=== PATIENT | male | born 1980 | race Caucasian/White ===

== ENCOUNTER → 2019-06-02 | Outpatient (CLI) | payer OTHER ==
[2019-06-02 14:01] LABS: Basophils # (A) 0.2 k/uL (0-0.2); Basophils % (A) 2 %; Eosinophils # (A) 0.5 k/uL (0-0.7); Eosinophils % (A) 5 %; HCT 56.2 % (39.0-53.0); HGB 18.6 gm/dL (13.0-17.5); Lymphocytes # (A) 3.2 k/uL (1.0-4.8); Lymphocytes % (A) 29 %; MCH 30.6 pg (25.0-35.0); MCV 92.6 fL (80.0-100.0); Mean Platelet Volume 6.4; Monocytes # (A) 0.6 k/uL (0-1.0); Monocytes % (A) 6 %; Neutrophils % (A) 56 %; Platelet Count 411 k/uL (150-450); RBC 6.07 m/uL (4.30-5.90); RDW 12.9 % (11.5-15.5); WBC 10.8 k/uL (3.8-10.6)
[2019-06-02 21:32] LABS: African American GFR (CKD) 111.7 (60.0-200.0); Albumin 4.5 g/dL (3.80-4.90); Albumin/Globulin Ratio 2.25 (1.60-3.17); Anion Gap 8.3 mmol/L (4.00-12.00); Calcium 9.4 mg/dL (8.7-10.3); Carbon Dioxide 25.7 mmol/L (21.6-31.8); Chol/HDL Ratio 5.05; LDL Cholesterol,Calculated 134.8 mg/dL (0.0-131.0); Total Bilirubin 0.4 mg/dL (0.2-1.2); Total Protein 6.5 g/dL (6.2-8.2); VLDL Calculation 35.2 mg/dL (5.00-40.00)
== END | disposition home or self-care (01) ==
LOC: LABWHC1 13:16
PROVIDERS: ATTEND Family Medicine
DX: Z00.00 Encounter for general adult medical examination without abnormal findings (principal)
CPT/HCPCS: 36415; 80053; 80061; 84443; 85025

== ENCOUNTER 2019-10-27 10:51 | Emergency (ER) | payer OTHER ==
[2019-10-27 11:15] VITALS: RESP 18
[2019-10-27 12:04] LABS: Appearance,Urine Cloudy (Clear); Bacteria,Urine Rare /hpf; Bilirubin,Urine Negative (Negative); Blood,Urine Small (Negative); Color,Urine Yellow; Glucose,Urine (UA) Negative (Negative); Ketones,Urine Negative (Negative); Leukocyte Esterase,Urine Large (Negative); Mucus,Urine Rare /hpf; Nitrite,Urine Negative (Negative); PH, Urine 5.5 (5.0-8.0); Protein,Urine Trace (Negative); RBC,Urine 18 /hpf (0-5); Specific Gravity,Urine 1.027 (1.001-1.035); Urobilinogen,Urine <2.0 mg/dL (<2.0); WBC,Urine 146 /hpf (0-5)
[2019-10-27] MEDS ORDERED: KETOROLAC 30 MG/ML 1 ML VIAL IM STA (12:28)
[2019-10-27] MEDS ORDERED: MORPHINE SULFATE 4 MG/ML SYRINGE IM STA (12:47)
[2019-10-27] MEDS ORDERED: cefTRIAXone IN SWFI 1,000 MG/10 ML SYRINGE IVP STA (13:13)
[2019-10-27] MEDS ORDERED: cefTRIAXone 1,000 MG VIAL (IM USE) IM STA (13:29)
[2019-10-27] MEDS ORDERED: LIDOCAINE 1% INJ 10MG/ML (20 ML MDV) SQ ONE (13:32)
--- NOTE | 2019-10-27 13:46 | US ---
EXAMINATION TYPE: US scrotum with doppler. TECHNIQUE: Grayscale and color Doppler Duplex imaging performed of the scrotum. DATE OF EXAM: 10/27/2019 COMPARISON: NONE CLINICAL HISTORY: 38-year-old male scrotal injury last week, patient has increased pain since then Findings: EXAM MEASUREMENTS: TESTICLES: Right Testicle: 4.6 x 2.2 x 2.7 cm Left Testicle: 3.6 x 2.4 x 3.0 cm Occasional bilateral testicular microlithiasis. EPIDIDYMIS HEAD: Right Epididymis: 1.1 cm Left Epididymis: 0.9 cm. However, there is enlargement and heterogeneity to the tail of the epididym is measuring up to 2.3 x 1.9 cm. Associated hyperemia. Doppler performed to assess for testicular vascularity; good bilateral color flow and waveforms are s een. There is no evidence of testicular torsion. 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 IMPRESSION: 1. No sonographic evidence for testicular torsion. 2. Heterogeneity, enlargement, and hyperemia of the left epididymis suggestive of epididymitis. 3. Small left hydrocele, likely reactive.
[2019-10-27] MEDS ORDERED: MORPHINE SULFATE 4 MG/ML SYRINGE IVP STA (14:44)
--- NOTE | 2019-10-27 14:44 | ED ---
Male Urogenital HPI - General Chief complaint: Urogenital Stated complaint: enlarged testicle Source: patient Mode of arrival: ambulatory Limitations: no limitations - History of Present Illness Initial comments: The patient is a 38-year-old male with history of chronic back pain who presents to the emergency department with reported left testicular pain. Patient reports that his pain has been going on for the past 5 days. Has been worsening for the past 3 days. He denies any inciting trauma.. He has been taking Tylenol at home for his symptoms. Denies dysuria, hematuria did leave voiding. Denies diarrhea, constipation, melenic stools or hematochezia Reports that it has become enlarged and warm to the touch. Reports that he was tested 3 weeks ago for sexually transmitted infections and they were negative. Denies any fevers or chills. Does admit to unprotected intercourse. 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 modifying factors - Related Data Home Medications Medication Instructions Recorded Confirmed HYDROcodone/APAP 10-325MG [[place] 1 tab PO Q6H PRN 12/19/15 12/19/15 10-325] buPROPion HCL [Zyban] 150 mg PO DAILY PRN 12/19/15 12/19/15 Previous Rx's Medication Instructions Recorded Cyclobenzaprine [Flexeril] 10 mg PO TID PRN #15 tab 12/19/15 methylPREDNISolone [Medrol Dose 4 mg PO DIRECTED #1 pack 12/19/15 Pack] Doxycycline Monohydrate [Monodox] 100 mg PO Q12HR #20 cap 10/27/19 Hydrocodone/Acetaminophen [[place] 1 tab PO Q6HR PRN #12 tab 10/27/19 5-325] Allergies Allergy/AdvReac Type Severity Reaction Status Date / Time No Known Allergies Allergy Verified 10/27/19 11:15 Review of Systems ROS Statement: Those systems with pertinent positive or pertinent negative responses have been documented in the HPI. ROS Other: All systems not noted in ROS Statement are negative. Past Medical History Additional Past Medical History / Comment(s): Genetic Fusion of the thoracic spine History of Any Multi-Drug Resistant Organisms: None Reported Past Surgical History: Appendectomy, Ear Surgery Additional Past Surgical History / Comment(s): Tubes in ears as child Past Psychological History: No Psychological Hx Reported Smoking Status: Current every day smoker Past Alcohol Use History: Occasional Past Drug Use History: Marijuana General Exam Limitations: no limitations Course Vital Signs 10/27/19 10/27/19 10/27/19 11:13 13:26 14:58 Temperature 98.6 F 97.7 F Pulse Rate 97 83 89 Respiratory 18 18 18 Rate Blood Pressure 153/103 126/91 130/98 O2 Sat by Pulse 97 98 99 Oximetry Medical Decision Making - Medical Decision Making Upon arrival the patient was placed into room 22. A thorough history and physical exam was performed. A urinalysis and testicular ultrasound were performed. Urinalysis demonstrates small blood, large leukocyte Estrace, 18 red blood cells, 146 white blood cells and rare bacteria. Scrotal ultrasound demonstrates increased vascularity and edematous-appearing epididymis suggestive of epididymitis. The patient was given some Toradol for pain. He was also provided with a dose of morphine. I discussed diagnosis, differential and treatment options. The patient was given a gram of Rocephin in the emergency department. I also recommended treatment with doxycycline as I am concern for sexually transmitted infection as a source of his epididymitis. The patient is given urology follow-up with. He is requesting something stronger than Tylenol for pain at home and states he previously took [place]. He is requesting [place]. They provided with a prescription for 12 tablets. He does sign and opioids start talking to him. Patient is a new or worsening symptoms he should return to the emergency room. Patient was discharged home in stable condition - Lab Data Lab Results 10/27/19 Range/Units 11:45 Urine Color Yellow Urine Appearance Cloudy (Clear) Urine pH 5.5 (5.0-8.0) Ur Specific [place] 1.027 (1.001-1.035) Urine Protein Trace H (Negative) Urine Glucose (UA) Negative (Negative) Urine Ketones Negative (Negative) Urine Blood Small H (Negative) Urine Nitrite Negative (Negative) Urine Bilirubin Negative (Negative) Urine Urobilinogen <2.0 (<2.0) mg/dL Ur Leukocyte Esterase Large H (Negative) Urine RBC 18 H (0-5) /hpf Urine WBC 146 H (0-5) /hpf Urine Bacteria Rare H (None) /hpf Urine Mucus Rare H (None) /hpf Disposition Clinical Impression: Epididymitis Disposition: HOME SELF-CARE Condition: Stable Instructions (If sedation given, give patient instructions): Epididymitis (ED) Additional Instructions: Please follow-up with your primary care doctor and the urologist within 2-4 days. Return to the emergency department for any new or worsening symptoms Prescriptions: Doxycycline Monohydrate [Monodox] 100 mg PO Q12HR #20 cap Hydrocodone/Acetaminophen [[place] 5-325] 1 tab PO Q6HR PRN #12 tab PRN Reason: Pain Is patient prescribed a controlled substance at d/c from ED?: Yes When asked, does pt state using other controlled substances?: No If prescribed controlled substance>3 days was MAPS reviewed?: Prescribed <3 Days If opioid is for acute pain is fill amount 7 days or less?: Yes If Rx opioid, was Start Talking consent form obtained?: Yes Referrals: Ligia Wang MD [Primary Care Provider] - 1-2 days Ge Catalan MD [STAFF PHYSICIAN] - 1-2 days Time of Disposition: 14:43
[2019-10-27 15:00] VITALS: BP 130/98; PULSE 89; TEMP 97.7
== END 2019-10-27 14:58 | disposition home or self-care (01) ==
LOC: EC 10:51
DX: N45.1 Epididymitis (principal); N43.3 Hydrocele, unspecified; F17.200 Nicotine dependence, unspecified, uncomplicated; Z98.1 Arthrodesis status
CPT/HCPCS: 81001; 93975; 76870; 99284; 96374; 96372 ×4; J2270; J2001; J0696; J1885

== ENCOUNTER 2019-12-18 11:13 | Emergency (ER) | payer OTHER ==
[2019-12-18 11:19] VITALS: BP 135/76; PULSE 103; RESP 18; TEMP 98.5
--- NOTE | 2019-12-18 11:40 | ED ---
Upper Extremity HPI - General Chief Complaint: Extremity Injury, Upper Stated Complaint: Shoulder injury Time Seen by Provider: 12/18/19 11:21 Source: patient Mode of arrival: ambulatory Limitations: no limitations - History of Present Illness Initial Comments: Patient states is a 39-year-old male presenting to the emergency department with chief complaint of right shoulder pain. Patient states he was working under his car about one month ago when the fani stand slipped and part of the van fell on this right upper arm and shoulder. States initially there was ecchymosis which ascends gradually resolve, however 90 is developed pain in the right shoulder with limited range of motion particularly with abduction above 100. Patient reports taking [id number] analgesics with some improvement. Denies any numbness or tingling. Denies other alleviating or aggravating factors. - Related Data Home Medications Medication Instructions Recorded Confirmed HYDROcodone/APAP 10-325MG [[place] 1 tab PO Q6H PRN 12/19/15 12/19/15 10-325] buPROPion HCL [Zyban] 150 mg PO DAILY PRN 12/19/15 12/19/15 Previous Rx's Medication Instructions Recorded Cyclobenzaprine [Flexeril] 10 mg PO TID PRN #15 tab 12/19/15 methylPREDNISolone [Medrol Dose 4 mg PO DIRECTED #1 pack 12/19/15 Pack] Doxycycline Monohydrate [Monodox] 100 mg PO Q12HR #20 cap 10/27/19 Hydrocodone/Acetaminophen [[place] 1 tab PO Q6HR PRN #12 tab 10/27/19 5-325] Allergies Allergy/AdvReac Type Severity Reaction Status Date / Time No Known Allergies Allergy Verified 12/18/19 11:19 Review of Systems ROS Statement: Those systems with pertinent positive or pertinent negative responses have been documented in the HPI. ROS Other: All systems not noted in ROS Statement are negative. Past Medical History Additional Past Medical History / Comment(s): Genetic Fusion of the thoracic spine History of Any Multi-Drug Resistant Organisms: None Reported Past Surgical History: Appendectomy, Ear Surgery Additional Past Surgical History / Comment(s): Tubes in ears as child Past Psychological History: No Psychological Hx Reported Smoking Status: Current every day smoker Past Alcohol Use History: Occasional Past Drug Use History: Marijuana General Exam Limitations: no limitations General appearance: alert, in no apparent distress, obese Head exam: Present: atraumatic, normocephalic, normal inspection Eye exam: Present: normal appearance, PERRL, EOMI Pupils: Present: normal accommodation ENT exam: Present: normal exam, normal oropharynx, mucous membranes moist Neck exam: Present: normal inspection, full ROM Respiratory exam: Present: normal lung sounds bilaterally Cardiovascular Exam: Present: regular rate, normal rhythm, normal heart sounds Extremities exam: Present: normal inspection, tenderness (Tenderness along the anterior and posterior aspect of her deltoid.), normal capillary refill, other (+2 ulnar and radial pulses bilaterally.). Absent: full ROM (Limited range of motion with abduction above 90. Positive empty can test. Positive [place].) Back exam: Present: normal inspection, full ROM Neurological exam: Present: alert, oriented X3 Psychiatric exam: Present: normal affect, normal mood Skin exam: Present: warm, dry, intact, normal color Course Vital Signs 12/18/19 11:15 Temperature 98.5 F Pulse Rate 103 H Respiratory 18 Rate Blood Pressure 135/76 O2 Sat by Pulse 99 Oximetry Medical Decision Making - Medical Decision Making Patient is a 39-year-old male presenting to the emergency department with a chief complaint of right shoulder pain. Patient had a traumatic injury on the right shoulder about one month ago. No signs of active trauma detected at this time. Patient does have anterior posterior deltoid tenderness. No bony deformities noted on the clavicle. Patient does have a positive empty can test as well as a [place] test. I suspect patient suffered injury to his rotator cuff muscles. Patient advised to follow with forestry extension specialist. Advised to alternate between Tylenol and Motrin for pain control. Return parameters thoroughly discussed the patient is understanding and agreeable. Case discussed with physician. Disposition Clinical Impression: Right shoulder injury, Right shoulder pain, Injury of right rotator cuff Disposition: HOME SELF-CARE Condition: Stable Instructions (If sedation given, give patient instructions): Rotator Cuff Injury (ED), Rotator Cuff Tendinitis (ED) Additional Instructions: Follow-up with an forestry extension specialist. Return to emergency department if symptoms worsen. Alternate between Tylenol and Motrin for pain control. Apply ice compress to minimize symptoms. Is patient prescribed a controlled substance at d/c from ED?: No Referrals: Ligia Wang MD [Primary Care Provider] - 1-2 days Sean Johnston MD [STAFF PHYSICIAN] - 1-2 days Time of Disposition: 12:11
--- NOTE | 2019-12-18 11:55 | XR ---
EXAMINATION TYPE: XR shoulder complete RT DATE OF EXAM: 12/18/2019 CLINICAL HISTORY: Right shoulder pain after fall TECHNIQUE: Three views of the right shoulder are obtained. COMPARISON: None. FINDINGS: There is no acute fracture/dislocation evident in the right shoulder. The acromioclavicul ar and glenohumeral joint spaces align with mild acromioclavicular arthropathy demonstrated as joint space narrowing. The visualized ribs are intact and unremarkable. IMPRESSION: There is no acute fracture or dislocation in the right shoulder.
== END 2019-12-18 12:42 | disposition home or self-care (01) ==
LOC: EC 11:13
DX: S46.001A Unspecified injury of muscle(s) and tendon(s) of the rotator cuff of right shoulder, initial encounter (principal); F17.200 Nicotine dependence, unspecified, uncomplicated; W20.8XXA Other cause of strike by thrown, projected or falling object, initial encounter; Y93.89 Activity, other specified
CPT/HCPCS: 99283

== ENCOUNTER 2020-02-15 08:56 | Emergency (ER) | payer OTHER ==
[2020-02-15 09:00] VITALS: BP 128/89; PULSE 115; TEMP 97.9
[2020-02-15 09:27] VITALS: RESP 16
--- NOTE | 2020-02-15 10:02 | ED ---
SOB HPI - General Chief Complaint: Shortness of Breath Stated Complaint: fatigue, wants covid test Time Seen by Provider: 02/15/20 09:05 Source: patient Mode of arrival: ambulatory Limitations: no limitations - History of Present Illness Initial Comments: 39-year-old male presenting for fatigue and slight shortness of breath presenting for coma testing. Patient states she's had slight shortness of breath and fatigue he states he doesn't feel like working and presented to the ER. Patient denies any significant cough diarrhea or abdominal pains as a chest pain. Patient denies additional complaints he states he does not want any blood work EKG lab studies states that he just wants the swab and to go - Related Data Home Medications Medication Instructions Recorded Confirmed No Known Home Medications 02/15/20 02/15/20 Allergies Allergy/AdvReac Type Severity Reaction Status Date / Time No Known Allergies Allergy Verified 02/15/20 10:28 Review of Systems ROS Statement: Those systems with pertinent positive or pertinent negative responses have been documented in the HPI. ROS Other: All systems not noted in ROS Statement are negative. Past Medical History Additional Past Medical History / Comment(s): Genetic Fusion of the thoracic spine History of Any Multi-Drug Resistant Organisms: None Reported Past Surgical History: Appendectomy, Ear Surgery Additional Past Surgical History / Comment(s): Tubes in ears as child Past Psychological History: No Psychological Hx Reported Smoking Status: Current every day smoker Past Alcohol Use History: Occasional Past Drug Use History: Marijuana General Exam - General Exam Comments Initial Comments: General: The patient is awake and alert, in no distress, and does not appear acutely ill. Eye: Pupils are equal, round and reactive to light, extra-ocular movements are intact. No nystagmus. There is normal conjunctiva bilaterally. No signs of i cterus. Ears, nose, mouth and throat: There are moist mucous membranes and no oral lesions. Neck: The neck is supple, there is no tenderness or JVD. Cardiovascular: There is a regular rate and rhythm. No murmur, rub or gallop is appreciated. Respiratory: Lungs are clear to auscultation, respirations are non-labored, breath sounds are equal. No wheezes, stridor, rales, or rhonchi. Musculoskeletal: Normal ROM, no tenderness. Strength 5/5. Sensation intact. Radial pulses equal bilaterally 2+. Neurological: A&O x 3. CN II-XII intact grossly, There are no obvious motor or sensory deficits. Coordination appears grossly intact. Speech is normal. Skin: Skin is warm and dry and no rashes or lesions are noted. No LE swelling, or edema. Psychiatric: Cooperative, appropriate mood & affect, normal judgment. Limitations: no limitations Course Vital Signs 02/15/20 02/15/20 08:57 09:26 Temperature 97.9 F Pulse Rate 115 H Respiratory 18 16 Rate Blood Pressure 128/89 O2 Sat by Pulse 98 Oximetry - Reevaluation(s) Reevaluation #1: Refused any work up states he is not that short of breath just fatigued. I urged workup if patient felt SOB. Patient refused he states he just wants to be swabbed for covid and leave. 02/15/20 10:02 Medical Decision Making - Medical Decision Making 39yo male presenting for cc of slight SOB, fatigue wants "a swab n go". refused work up discussed that i cannnot rule out life threatning or debilitating causes of SOB. continues to refuse. Patient nurse in priority 1 patient and thus I obtained AMA form, patient signed. Covid swab obtained and patient left the hospital. Discussed case with Dr. Hunt who is agreeable to this care plan. Discussed return parameters with patient. Disposition Clinical Impression: Fatigue, SOB (shortness of breath) Disposition: Left Against Medical Advice Condition: Stable Additional Instructions: Please use medication as discussed. Please follow-up with family doctor in the next 2 days.. Please return to emergency room if the symptoms increase or worsen or for any other concerns. Is patient prescribed a controlled substance at d/c from ED?: No Referrals: Ligia Wang MD [Primary Care Provider] - 1-2 days Time of Disposition: 10:02
== END 2020-02-15 12:42 | disposition left against medical advice (07) ==
LOC: EC 08:56
DX: R06.02 Shortness of breath (principal); R53.83 Other fatigue; F17.200 Nicotine dependence, unspecified, uncomplicated; Z20.828 Contact with and (suspected) exposure to other viral communicable diseases; Z53.29 Procedure and treatment not carried out because of patient's decision for other reasons
CPT/HCPCS: 99284; U0003

== ENCOUNTER → 2020-06-22 | Outpatient (CLI) | payer OTHER ==
[2020-06-22 16:46] LABS: Basophils # (A) 0.4 k/uL (0-0.2); Basophils % (A) 3 %; Eosinophils # (A) 0.6 k/uL (0-0.7); Eosinophils % (A) 4 %; HCT 53.7 % (39.0-53.0); HGB 17.8 gm/dL (13.0-17.5); Lymphocytes % (A) 30 %; MCH 30.5 pg (25.0-35.0); MCHC 33.1 g/dL (31.0-37.0); MCV 92.1 fL (80.0-100.0); Mean Platelet Volume 6.8; Monocytes # (A) 0.9 k/uL (0-1.0); Monocytes % (A) 7 %; Neutrophils # (A) 7.5 k/uL (1.3-7.7); Neutrophils % (A) 55 %; Platelet Count 402 k/uL (150-450); RBC 5.83 m/uL (4.30-5.90); WBC 13.7 k/uL (3.8-10.6)
[2020-06-23 02:07] LABS: % Iron Saturation 25.89 (15.00-50.00)
[2020-06-23 02:15] LABS: Ferritin 276.4 ng/mL (22.0-322.0)
== END | disposition home or self-care (01) ==
LOC: LABWHC1 15:30
PROVIDERS: ATTEND Family Medicine
DX: D75.1 Secondary polycythemia (principal)
CPT/HCPCS: 36415; 82728; 83540; 83550; 85025

== ENCOUNTER → 2020-06-22 | Outpatient (CLI) | payer OTHER ==
--- NOTE | 2020-06-22 15:09 | XR ---
EXAMINATION TYPE: XR hand complete LT DATE OF EXAM: 06/22/2020 COMPARISON: NONE HISTORY: pain TECHNIQUE: Three views are submitted. FINDINGS: The osseous structures are intact. The joint spaces are preserved and there is no acute fracture or dislocation. IMPRESSION: 1. No definite acute fracture or dislocation if symptoms persist, follow-up study in 7 to 10 days wo uld be suggested
--- NOTE | 2020-06-23 09:57 | ECHOF ---
Referral Reason:R07.9 chest pain MEASUREMENTS -------- HEIGHT: 162.6 cm WEIGHT: 127.0 kg BP: RVIDd: 3.0 cm (< 3.3) IVSd: 1.2 cm (0.6 - 1.1) LVIDd: 4.5 cm (3.9 - 5.3) LVPWd: 1.2 cm (0.6 - 1.1) IVSs: 1.4 cm LVIDs: 3.2 cm LVPWs: 1.6 cm LA Diam: 2.9 cm (2.7 - 3.8) LAESV Index (A-L): 19.95 ml/m Ao Diam: 2.9 cm (2.0 - 3.7) AV Cusp: 2.2 cm (1.5 - 2.6) MV EXCURSION: 16.659 mm (> 18.000) MV EF SLOPE: 71 mm/s (70 - 150) EPSS: 0.3 cm MV E Jason: 0.56 m/s MV DecT: 194 ms MV A Jason: 0.68 m/s MV E/A Ratio: 0.83 RAP: 5.00 mmHg RVSP: 12.80 mmHg FINDINGS -------- Sinus rhythm. This was a technically adequate study. Morbid Obesity The left ventricular size is normal. There is mild concentric left ventricular hypertrophy. Overa ll left ventricular systolic function is normal with, an EF between 55 - 60 %. The right ventricle is normal in size. Normal LA size by volume 22+/-6 ml/m2. The right atrial size is normal. The aortic valve is trileaflet, and appears structurally normal. No aortic stenosis or regurgitation. The mitral valve is normal. Mild mitral regurgitation is present. The tricuspid valve appears structurally normal. Mild tricuspid regurgitation present. Right vent ricular systolic pressure is normal at < 35 mmHg. The pulmonic valve was not well visualized. The aortic root size is normal. There is no pericardial effusion. CONCLUSIONS -------- 1. There is mild concentric left ventricular hypertrophy. 2. Overall left ventricular systolic function is normal with, an EF between 55 - 60 %. 3. Normal LA size by volume 22+/-6 ml/m2. 4. The aortic valve is trileaflet, and appears structurally normal. No aortic stenosis or regurgitati on. 5. Mild mitral regurgitation is present. 6. Mild tricuspid regurgitation present. 7. There is no pericardial effusion. [employer]OP[employer]: Aga Maya RDCS
== END | disposition home or self-care (01) ==
LOC: RADECHMAIN 14:51
PROVIDERS: ATTEND Family Medicine
DX: I08.1 Rheumatic disorders of both mitral and tricuspid valves (principal); R07.9 Chest pain, unspecified; M79.642 Pain in left hand
CPT/HCPCS: 93306

== ENCOUNTER → 2020-07-02 | Outpatient (CLI) | payer OTHER | END | disposition home or self-care (01) | LOC: LABWHC1 10:52 | PROVIDERS: ATTEND Family Medicine | DX: Z03.818 Encounter for observation for suspected exposure to other biological agents ruled out (principal) | CPT/HCPCS: U0003; C9803 ==

== ENCOUNTER → 2020-12-23 | Outpatient (CLI) | payer OTHER | END | disposition home or self-care (01) | LOC: LABWHC1 09:26 | PROVIDERS: ATTEND Family Medicine | DX: Z20.822 Contact with and (suspected) exposure to COVID-19 (principal) | CPT/HCPCS: U0003; C9803; U0005 ==